=== PATIENT | male | born 1990 | race Caucasian/White ===

== ENCOUNTER 2019-06-06 06:55 | Emergency (ER) | payer BC, MEDICAID ==
[~2019-06-06] VITALS: Ht 167.6 cm; Wt 51.8 kg
[~2019-06-06 06:55] MED LIST: ALBU18HF2 INH; ATOR10TA70 PO; CA C1TAB89 PO; FLUT1DIS4 INH; MONT10TA21 PO; MULT-1085 PO; ONDA4TAB12 PO
[2019-06-06] MEDS ORDERED: normal saline 1000ML IV soln IVB ONE (07:15)
[2019-06-06] MEDS ORDERED: ondansetron/PF 4mg/2ml inj IV ONE (07:15)
[2019-06-06] MEDS: morphine 4 MG/ML inj SYRINge IV PRN ×2 (07:18→07:39)
[2019-06-06 07:30] LABS: CLARITY,URINE CLOUDY (Clear); COLOR,URINE YELLOW (Yellow); GLUCOSE, URINE NEGATIVE (Neg); KETONES,URINE NEGATIVE (Neg); LEUKOCYTE ESTERASE ,URINE NEGATIVE (Neg); NITRITES, URINE NEGATIVE (Neg); OCCULT BLOOD,URINE LARGE (Neg); PH,URINE 8.5 (4.8-8.0); PROTEIN,URINE NEGATIVE (Neg); UROBILINOGEN,URINE 0.2 E.U/dL (0.2-1.0)
[2019-06-06 07:31] LABS: BASOPHILS % (AUTO) 0.6 % (0-1); EOSINOPHILS # (AUTO) 0.1 X10'3 (0-0.9); HEMATOCRIT 44.4 % (42.0-52.0); HEMOGLOBIN 16.1 g/dl (14.0-17.9); LYMPHOCYTES # (AUTO) 1.7 X10'3 (1.1-4.8); LYMPHOCYTES % (AUTO) 25.1 % (21-51); MEAN CORPUSCULAR HEMOGLOBIN 32.7 PG (27.0-31.0); MEAN CORPUSCULAR HGB CONC 36.2 g/dL (33.0-36.5); MEAN CORPUSCULAR VOLUME 90.4 FL (78-98); MEAN PLATELET VOLUME 7.4 FL (7.4-10.4); MONOCYTES # (AUTO) 0.4 X10'3 (0-0.9); MONOCYTES % (AUTO) 5.5 % (2-12); NEUTROPHILS # (AUTO) 4.5 X10'3 (1.8-7.7); NEUTROPHILS % (AUTO) 67.8 % (42-75); PLATELET COUNT 217 X10'3 (140-440); RED BLOOD COUNT 4.91 X10'6 (4.70-6.10); RED CELL DISTRIBUTION WIDTH 12.7 % (11.5-14.5); WHITE BLOOD COUNT 6.7 X10'3 (4.5-11.0)
[2019-06-06 07:34] LABS: UA COLLECTION TYPE CLN CATCH MIDSTREAM
[2019-06-06 07:36] LABS: SQUAMOUS EPITHELIAL CELL,UR FEW /LPF (FEW)
[2019-06-06 07:38] LABS: AMORPHOUS PHOSPHATES 3+
[2019-06-06 07:40] LABS: BACTERIA,URINE 1+ /HPF (Neg); RBC,URINE 50-100 /HPF (0-2); WBC,URINE 0-4 /HPF (0-4)
[2019-06-06 07:45] LABS: ALANINE AMINOTRANSFERASE 39 U/L (12-78); ALBUMIN 4.7 G/DL (3.4-5.0); ALBUMIN/GLOBULIN RATIO 1.7 (1.1-1.5); ALKALINE PHOSPHATASE 71 IU/L (46-116); ANION GAP 9 (8-16); ASPARTATE AMINO TRANSFERASE 17 U/L (10-37); BILIRUBIN,TOTAL 0.6 MG/DL (0.1-1.0); BLOOD UREA NITROGEN 12 MG/DL (7-18); BUN/CREATININE RATIO 11.5 (5.4-32.0); CALCIUM 9.4 MG/DL (8.5-10.1); CHLORIDE 105 MMOL/L (99-107); CREATININE 1.04 MG/DL (0.60-1.10); GLUCOSE 115 MG/DL (70-104); LIPASE 128 U/L (73-393); POTASSIUM 3.9 MMOL/L (3.5-5.1); SODIUM 143 MMOL/L (135-145); TOTAL CARBON DIOXIDE 29.2 MMOL/L (24-32); TOTAL PROTEIN 7.4 G/DL (6.4-8.2); eGFR 86 ML/MIN
[2019-06-06] MEDS ORDERED: FLO0.4C PO (08:46)
[2019-06-06] MEDS ORDERED: HYDR-3965 PO (08:46)
[2019-06-06 09:07] LABS: PLATELET ESTIMATE NORMAL; SPHEROCYTES 2+
[2019-06-06 09:26] VITALS: BP 112/69
== END 2019-06-06 09:40 | disposition home or self-care (01) ==
LOC: ER 06:56
DX: N20.0 Calculus of kidney (principal); R11.10 Vomiting, unspecified; Z88.0 Allergy status to penicillin; Z79.899 Other long term (current) drug therapy
CPT/HCPCS: 36415; 74176; 80053; 81001; 83690; 85025; 96374; 96375; 99284; J2270; J2405; J7030

== ENCOUNTER 2020-06-28 13:02 | Emergency (ER) | payer MEDICAID ==
[~2020-06-28] VITALS: Ht 167.6 cm; Wt 50.0 kg
[2020-06-28 13:48] LABS: BASOPHILS % (AUTO) 0.3 % (0-1); EOSINOPHILS # (AUTO) 0.1 X10'3 (0-0.9); EOSINOPHILS % (AUTO) 0.9 % (0-6); HEMATOCRIT 44.8 % (42.0-52.0); HEMOGLOBIN 15.8 g/dl (14.0-17.9); LYMPHOCYTES # (AUTO) 1.8 X10'3 (1.1-4.8); LYMPHOCYTES % (AUTO) 22.9 % (21-51); MEAN CORPUSCULAR HEMOGLOBIN 32.4 PG (27.0-31.0); MEAN CORPUSCULAR HGB CONC 35.4 g/dL (33.0-36.5); MEAN CORPUSCULAR VOLUME 91.7 FL (78-98); MEAN PLATELET VOLUME 7.5 FL (7.4-10.4); MONOCYTES # (AUTO) 0.5 X10'3 (0-0.9); NEUTROPHILS # (AUTO) 5.3 X10'3 (1.8-7.7); NEUTROPHILS % (AUTO) 68.9 % (42-75); PLATELET COUNT 211 X10'3 (140-440); RED BLOOD COUNT 4.88 X10'6 (4.70-6.10); RED CELL DISTRIBUTION WIDTH 12.8 % (11.5-14.5); WHITE BLOOD COUNT 7.7 X10'3 (4.5-11.0)
[2020-06-28 13:57] LABS: ALANINE AMINOTRANSFERASE 36 U/L (12-78); ALBUMIN 4.3 G/DL (3.4-5.0); ALBUMIN/GLOBULIN RATIO 1.5 (1.1-1.5); ALKALINE PHOSPHATASE 62 IU/L (46-116); ANION GAP 6 (8-16); ASPARTATE AMINO TRANSFERASE 11 U/L (10-37); BILIRUBIN,TOTAL 0.6 MG/DL (0.1-1.0); BLOOD UREA NITROGEN 12 MG/DL (7-18); BUN/CREATININE RATIO 12.9 (5.4-32.0); CALCIUM 9.2 MG/DL (8.5-10.1); CHLORIDE 103 MMOL/L (99-107); CREATININE 0.93 MG/DL (0.60-1.10); GLUCOSE 100 MG/DL (70-104); POTASSIUM 3.7 MMOL/L (3.5-5.1); SODIUM 141 MMOL/L (135-145); TOTAL CARBON DIOXIDE 32.1 MMOL/L (24-32); TOTAL PROTEIN 7.2 G/DL (6.4-8.2); eGFR > 90 ML/MIN
[2020-06-28 15:32] VITALS: BP 105/65
--- NOTE | 2020-06-28 15:40 | NUR ---
DR. VENTURA SPOKE TO PT AGAIN BEFORE HE LEFT.
== END 2020-06-28 15:40 | disposition home or self-care (01) ==
LOC: ER 13:02
DX: R07.89 Other chest pain (principal); Z20.822 Contact with and (suspected) exposure to COVID-19; R53.83 Other fatigue; J45.909 Unspecified asthma, uncomplicated; E78.00 Pure hypercholesterolemia, unspecified; Z88.0 Allergy status to penicillin; Z79.899 Other long term (current) drug therapy
CPT/HCPCS: 36415; 71045; 80053; 83880; 84484; 85025; 87635; 93005; 99285